=== PATIENT | male | born 1945 | race Caucasian/White ===

== ENCOUNTER 2017-11-28 07:49 | Day surgery (SDC) | payer MEDICARE, OTHER ==
[~2017-11-28] VITALS: Ht 190.5 cm; Wt 116.4 kg
[2017-11-28] VITALS (10 sets, daily range): BP systolic 144–170; BP diastolic 83–101; PULSE 70–87; TEMP 97.7
[2017-11-28 08:39] LABS: HEMATOCRIT 47.5 % (42.0-52.0); MEAN CELL VOLUME 91 fl (80.0-100.0); MEAN CORPUSCULAR HEMOGLOBIN 31 pg (27.0-31.0); MEAN CORPUSCULAR HGB CONC 34 g/dl (33.0-37.0); MEAN PLATELET VOLUME 9.5 fl (7.4-10.4); PLATELET COUNT 258 K/mm3 (130-400); RED BLOOD COUNT 5.23 M/mm3 (4.20-5.60); REDCELL DISTRIBUTION WIDTH-CV 13.9 % (11.5-14.5)
[2017-11-28 08:44] LABS: INR 1.2 (0.8-3.0)
[2017-11-28 08:48] LABS: CREATININE, serum 1.2 mg/dL (0.66-1.25); POTASSIUM 4.3 mmol/L (3.4-5.0)
[2017-11-28] MEDS ORDERED: ASPIRIN E.C. 8181 MG PO (09:07)
[2017-11-28] MEDS ORDERED: IMDUR 30MG30 MG/TAB PO (09:11)
[2017-11-28] MEDS ORDERED: ZESTRIL 5MG5 MG PO (09:11)
[2017-11-28] MEDS ORDERED: LEVOXYL0.075 MG PO (09:12)
[2017-11-28] MEDS ORDERED: VITAMINC1000TA PO (09:12)
[2017-11-28] MEDS ORDERED: MULTI VITAMINS1 TAB PO (09:13)
[2017-11-28] MEDS ORDERED: NITROSTAT0.4 MG/TAB SL (09:14)
== END 2017-11-28 14:45 | disposition home or self-care (01) ==
LOC: COL.CAR 07:49
PROVIDERS: Internal Medicine Cardiovascular Disease
DX: I25.110 Atherosclerotic heart disease of native coronary artery with unstable angina pectoris (principal); I10 Essential (primary) hypertension; N40.0 Benign prostatic hyperplasia without lower urinary tract symptoms; Z79.82 Long term (current) use of aspirin; Z88.1 Allergy status to other antibiotic agents; Z88.8 Allergy status to other drugs, medicaments and biological substances; Z82.49 Family history of ischemic heart disease and other diseases of the circulatory system; Z82.3 Family history of stroke
CPT/HCPCS: J1200; J1644; J2250; J2930; J3010; Q9967

== ENCOUNTER → 2021-09-28 | Day surgery (SDC) | payer MEDICARE, OTHER ==
[~2021-09-28] VITALS: Ht 190.7 cm; Wt 124.4 kg
[2021-09-28] VITALS (14 sets, daily range): BP systolic 129–159; BP diastolic 70–96; PULSE 67–86; TEMP 98.2
[~2021-09-28] MED LIST: ASPIRIN E.C. 8181 MG PO; BENADRYL50 MG PO; IMDUR 30MG30 MG/TAB PO; LEVOXYL0.075 MG PO; LIPITOR 80MG80 MG PO; LOPRESSOR 225 MG/TAB PO; MOBIC15 MG PO; MULTI VITAMINS1 TAB PO; NITROSTAT0.4 MG/TAB SL; PEPCID40 MG PO; PREDNISONE20 MG PO; VITAMIN D31000 IU PO; VITAMINC1000TA PO; ZESTRIL 5MG5 MG PO
[2021-09-28 07:52] LABS: HEMATOCRIT 46.5 % (42.0-52.0); HEMOGLOBIN 15.6 g/dl (13.5-18.0); MEAN CELL VOLUME 90 fl (80.0-100.0); MEAN CORPUSCULAR HEMOGLOBIN 30 pg (27.0-31.0); MEAN CORPUSCULAR HGB CONC 34 g/dl (33.0-37.0); MEAN PLATELET VOLUME 9.8 fl (7.4-10.4); PLATELET COUNT 290 K/mm3 (130-400); RED BLOOD COUNT 5.16 M/mm3 (4.20-5.60)
[2021-09-28 08:05] LABS: INR 1.2 (0.8-3.0); PROTHROMBIN TIME 13.4 SECONDS (9.7-12.8)
[2021-09-28 08:07] LABS: CALCIUM 10.2 mg/dL (8.4-10.2); CREATININE, serum 1.36 mg/dL (0.72-1.25); POTASSIUM 4.5 mmol/L (3.5-4.5)
[2021-09-28 08:08] LABS: PARTIAL THROMBOPLASTIN TIME 33.4 SECONDS (26.0-37.0)
--- NOTE | 2021-09-28 09:16 | NUR ---
SEE MERGE FOR ALL MEDICATION ADMINISTRATION TIMES, INTRA AND POST SEDATION ASSESSMENTS
--- NOTE | 2021-09-28 14:45 | NUR ---
Pt was assisted out of bed following 6 hr bedrest period. Rt femoral puncture site remains soft to palpation, and dressing clean, dry and intact with activity, and remained unchanged up until time of departure. Pt was assisted to use bedside commode and assisted to dress. Rt pedal pulses remain strong. Pt has tolerated PO intake without issue. DC instructions reviewed with pt and , both expressed understanding. INT DC'd with catheter intact. He is assisted out to 's car by wheelchair with belongings.
== END ==
LOC: COL.CAR 09-27 09:15
PROVIDERS: Internal Medicine Cardiovascular Disease
DX: I25.10 Atherosclerotic heart disease of native coronary artery without angina pectoris (principal); I10 Essential (primary) hypertension; E78.00 Pure hypercholesterolemia, unspecified; Z79.82 Long term (current) use of aspirin; Z95.1 Presence of aortocoronary bypass graft; Z79.899 Other long term (current) drug therapy
CPT/HCPCS: C1769; C1894; J1644; J2250; J3010